=== PATIENT | female | born 1985 | race Caucasian/White ===

== ENCOUNTER 2023-03-21 19:40 | Emergency (ER) | payer OTHER, MEDICAID ==
[2023-03-21 20:06] LABS: EOSINOPHILS ABSOLUTE AUTO 0.1 x10^3/uL (0.0-0.5); EOSINOPHILS PERCENT AUTO 2.1 % (0.0-4.0); HEMATOCRIT 29.2 % (33.0-47.0); HEMOGLOBIN 9.7 g/dL (12.0-16.0); IMMATURE GRAN ABSOLUTE AUTO 0.02 x10^3/uL (0.00-0.07); LYMPHOCYTES ABSOLUTE AUTO 0.9 x10^3/uL (1.0-4.8); LYMPHOCYTES PERCENT AUTO 20.5 % (25.0-50.0); MEAN CORPUSCULAR HEMOGLOBIN 29.4 pg (26.0-32.0); MEAN CORPUSCULAR HGB CONC 33.2 g/dL (32.0-36.0); MEAN CORPUSCULAR VOLUME 88.5 fL (78.0-93.0); MONOCYTES ABSOLUTE AUTO 0.2 x10^3/uL (0.0-0.8); MONOCYTES PERCENT AUTO 5.5 % (2.0-11.0); NEUTROPHILS PERCENT AUTO 71.4 % (50.0-80.0); PLATELET COUNT,PLT 100 x10^3/uL (130-400); WHITE BLOOD CELL COUNT,WBC 4.2 x10^3/uL (4.0-10.0)
[2023-03-21 20:32] LABS: A/G RATIO 0.74; ALANINE AMINOTRANSFERASE,ALT 18 U/L (14-59); ALBUMIN 2.5 g/dL (3.4-5.0); ALKALINE PHOSPHATASE 82 U/L (46-116); ANION GAP 14.2 mmol/L (5-15); ASPARTATE AMNIOTRANSFERASE,AST 16 U/L (15-37); BLOOD UREA NITROGEN,BUN 6 mg/dL (7-18); C-REACTIVE PROTEIN 0.97 mg/dL (<=0.50); CALCIUM 7.5 mg/dL (8.5-10.1); CARBON DIOXIDE,CO2 25 mmol/L (21-32); CHLORIDE,CL 108 mmol/L (98-107); CREATININE 0.9 mg/dL (0.55-1.02); ESTIMATED GFR 85 mL/min (>=60); GLUCOSE RANDOM 114 mg/dL (70-99); POTASSIUM,K 3.2 mmol/L (3.5-5.1); PROTEIN TOTAL,TP 5.9 g/dL (6.4-8.2); SODIUM,NA 144 mmol/L (136-145)
[2023-03-21 20:37] LABS: BILIRUBIN TOTAL 0.1 mg/dL (0.2-1.0)
== END 2023-03-21 22:04 | disposition home or self-care (01) ==
LOC: VM.ED 19:40
DX: S01.81XA Laceration without foreign body of other part of head, initial encounter (principal); S61.419A Laceration without foreign body of unspecified hand, initial encounter; S40.011A Contusion of right shoulder, initial encounter; S80.211A Abrasion, right knee, initial encounter; S80.212A Abrasion, left knee, initial encounter; V89.2XXA Person injured in unspecified motor-vehicle accident, traffic, initial encounter; Y92.410 Unspecified street and highway as the place of occurrence of the external cause
CPT/HCPCS: 70450; 71045; 72170; 73030-RT; 80053; 85025; 85610; 86140; 99285